=== PATIENT | male | born 1955 | race African-American/Black ===

== ENCOUNTER 2017-02-23 17:40 | Emergency (ER) | payer MEDICARE ==
--- NOTE | 2017-02-23 18:20 | ER Document Report ---
ED Medical Screen (RME) - General Chief Complaint: Leg Pain Stated Complaint: LEG PAIN Time Seen by Provider: 02/23/17 18:10 Mode of Arrival: Wheelchair Information source: Patient TRAVEL OUTSIDE OF THE [place] IN LAST 30 DAYS: No - HPI Patient complains to provider of: R leg pain; SOB Onset: Other - pt was seen at earlier today with R leg pain and SOB. He says they were concerned he may have a blood clot and they told him to be evaluated here - Related Data Allergies/Adverse Reactions: No Known Allergies Allergy (Unverified 02/23/17 17:43) Home Medications: Current Home Medications Aspirin [Aspirin 81 mg Chewable Tablet] 81 mg PO DAILY 02/23/17 [History] Atorvastatin Calcium 10 mg PO QHS 02/23/17 [History] Gabapentin 300 mg PO BID 02/23/17 [History] Glimepiride 2 mg PO BID 02/23/17 [History] Hydrochlorothiazide 25 mg PO BID 02/23/17 [History] Levothyroxine Sodium 75 mcg PO DAILY 02/23/17 [History] Losartan Potassium 100 mg PO DAILY 02/23/17 [History] Metformin HCl [Metformin HCl ER] 1,000 mg PO DAILY 02/23/17 [History] Multivitamin [Multivitamins] 1 tab PO DAILY 02/23/17 [History] Pioglitazone HCl [Pioglitazone HCl] 1 tab PO DAILY 02/23/17 [History] Past Medical History - Social History Chew tobacco use (# tins/day): No Frequency of alcohol use: None Drug Abuse: None Renal/ Medical History: Denies: Hx Peritoneal Dialysis Physical Exam - Vital signs Vitals: Temp Pulse Resp BP Pulse Ox 97.6 F 76 20 162/73 H 93 02/23/17 17:59 02/23/17 17:59 02/23/17 17:59 02/23/17 17:59 02/23/17 17:59 Course - Vital Signs Vital signs: Temp Pulse Resp BP Pulse Ox 97.6 F 76 20 162/73 H 93 02/23/17 17:59 02/23/17 17:59 02/23/17 17:59 02/23/17 17:59 02/23/17 17:59
[2017-02-23 18:53] LABS: ABSOLUTE BASOPHILS # (AUTO) 0.1 10^3/uL (0.0-0.2); ABSOLUTE EOSINOPHILS # (AUTO) 0.4 10^3/uL (0.0-0.6); ABSOLUTE MONOCYTES (AUTO) 0.8 10^3/uL (0.1-1.4); ABSOLUTE NEUT (AUTO) 4.3 10^3/uL (1.7-8.2); BASOPHILS % (AUTO) 0.7 % (0-2); EOSINOPHILS % (AUTO) 5.8 % (0-6); HEMATOCRIT 33.1 % (37.9-51.0); HEMOGLOBIN 10.8 g/dL (13.5-17.0); HGB HCT DIFFERENCE -0.7; LYMPHOCYTES % (AUTO) 26.8 % (13-45); MEAN CORPUSCULAR HEMOGLOBIN 26.7 pg (27.0-33.4); MEAN CORPUSCULAR HGB CONC 32.6 g/dL (32.0-36.0); MEAN CORPUSCULAR VOLUME 82 fl (80-97); MONOCYTES % (AUTO) 10.3 % (3-13); RED BLOOD COUNT 4.04 10^6/uL (4.35-5.55); RED CELL DISTRIBUTION WIDTH 15.6 % (11.5-14.0); SEGMENTED NEUTROPHILS % (AUTO) 56.4 % (42-78); WHITE BLOOD COUNT 7.6 10^3/uL (4.0-10.5)
--- NOTE | 2017-02-23 18:58 | RADIOLOGY REPORT (SQ) ---
EXAM DESCRIPTION: CHEST PA/LAT COMPLETED DATE/TIME: 02/23/2017 6:48 pm REASON FOR STUDY: SOB COMPARISON: None. EXAM PARAMETERS: NUMBER OF VIEWS: two views TECHNIQUE: Digital Frontal and Lateral radiographic views of the chest acquired. RADIATION DOSE: NA LIMITATIONS: none FINDINGS: LUNGS AND PLEURA: No opacities, masses or pneumothorax. No pleural effusion. MEDIASTINUM AND HILAR STRUCTURES: No masses or contour abnormalities. HEART AND VASCULAR STRUCTURES: Heart normal size. No evidence for failure. BONES: No acute findings. HARDWARE: None in the chest. OTHER: No other significant finding. IMPRESSION: NO SIGNIFICANT RADIOGRAPHIC FINDING IN THE CHEST. TECHNICAL DOCUMENTATION: JOB ID: [id number] [employer]- All Rights Reserved
[2017-02-23 19:29] LABS: ALANINE AMINOTRANSFERASE 36 U/L (21-72); ALBUMIN 4.1 g/dL (3.5-5.0); ALKALINE PHOSPHATASE 79 U/L (38-126); ANION GAP 13 (5-19); ASPARTATE AMINO TRANSFERASE 28 U/L (17-59); BILIRUBIN,DIRECT 0.5 mg/dL (0.0-0.4); BILIRUBIN,TOTAL 0.5 mg/dL (0.2-1.3); BLOOD UREA NITROGEN 21 mg/dL (7-20); CALCIUM 9.8 mg/dL (8.4-10.2); CARBON DIOXIDE 28 mmol/L (22-30); CHLORIDE 101 mmol/L (98-107); CREATINE KINASE 468 U/L (55-170); CREATININE RESULT 1.33 mg/dL (0.52-1.25); GLUCOSE 66 mg/dL (75-110); POTASSIUM 4.2 mmol/L (3.6-5.0); SODIUM 142.3 mmol/L (137-145); TOTAL PROTEIN 7.7 g/dL (6.3-8.2)
[2017-02-23 19:41] LABS: CREATINE KINASE MB 2.49 ng/mL (<4.55)
[2017-02-23 19:45] LABS: TROPONIN I < 0.012 ng/mL
--- NOTE | 2017-02-23 21:13 | RADIOLOGY REPORT (SQ) ---
EXAM DESCRIPTION: VENOUS UNILATERAL LOWER COMPLETED DATE/TIME: 02/23/2017 9:00 pm REASON FOR STUDY: R leg pain and swelling COMPARISON: None. TECHNIQUE: Dynamic and static schmidt scale and color images acquired of the right leg venous system. S elected spectral images acquired with additional compression and augmentation maneuvers. The contrala teral common femoral vein and saphenofemoral junction were also imaged. Images stored on PACS. LIMITATIONS: None. FINDINGS: COMMON FEMORAL: Normal phasicity, compression and augmentation. No visualized echogenic ma terial on schmidt scale. No defects on color images. FEMORAL: Normal compression and augmentation. No visualized echogenic material on schmidt scale. No defe cts on color images. POPLITEAL: Normal compression, augmentation. No visualized echogenic material on schmidt scale. No defec ts on color images. CALF VESSELS: Normal compression, augmentation. No visualized echogenic material on schmidt scale. No de fects on color images. GSV and SSV: Normal compression, augmentation. No visualized echogenic material on schmidt scale. No def ects on color images. ANY DEEP VENOUS INSUFFICIENCY: Not evaluated. ANY EVIDENCE OF POPLITEAL CYST: No. OTHER: No other significant finding. CONTRALATERAL COMMON FEMORAL VEIN AND SAPHENOFEMORAL JUNCTION: Normal phasicity, compression and augmentation. No visualized echogenic material on schmidt scale. No de fects on color images. IMPRESSION: NO EVIDENCE OF DVT OR SVT IN THE RIGHT LEG. TECHNICAL DOCUMENTATION: JOB ID: [id number] [email or web address]- All Rights Reserved
--- NOTE | 2017-02-23 22:42 | ER Document Report ---
ED General - General Chief Complaint: Leg Pain Stated Complaint: LEG PAIN Time Seen by Provider: 02/23/17 18:10 Mode of Arrival: Wheelchair Notes: The patient is a 61-year-old male, past medical history hypertension, presents with several weeks of bilateral leg swelling and 1 week of right calf pain. In addition, he was having slight wheezing earlier in the week. Patient was seen at the urgent care and sent to the ER for further evaluation and treatment. Patient has never had a DVT and is not on any blood thinners. He denies shortness of breath, chest pain, dyspnea on exertion, rash, numbness, tingling, recent surgery or leg injury. TRAVEL OUTSIDE OF THE [place] IN LAST 30 DAYS: No - Related Data Allergies/Adverse Reactions: No Known Allergies Allergy (Unverified 02/23/17 17:43) Home Medications: Current Home Medications Aspirin [Aspirin 81 mg Chewable Tablet] 81 mg PO DAILY 02/23/17 [History] Atorvastatin Calcium 10 mg PO QHS 02/23/17 [History] Gabapentin 300 mg PO BID 02/23/17 [History] Glimepiride 2 mg PO BID 02/23/17 [History] Hydrochlorothiazide 25 mg PO BID 02/23/17 [History] Levothyroxine Sodium 75 mcg PO DAILY 02/23/17 [History] Losartan Potassium 100 mg PO DAILY 02/23/17 [History] Metformin HCl [Metformin HCl ER] 1,000 mg PO DAILY 02/23/17 [History] Multivitamin [Multivitamins] 1 tab PO DAILY 02/23/17 [History] Pioglitazone HCl [Pioglitazone HCl] 1 tab PO DAILY 02/23/17 [History] Past Medical History - General Information source: Patient - Social History Smoking Status: Former Smoker Chew tobacco use (# tins/day): No Frequency of alcohol use: None Drug Abuse: None Family History: Reviewed & Not Pertinent Patient has suicidal ideation: No Patient has homicidal ideation: No Renal/ Medical History: Denies: Hx Peritoneal Dialysis Review of Systems - Review of Systems Notes: REVIEW OF SYSTEMS: CONSTITUTIONAL: -fevers, -chills EENT: -eye pain, -difficulty swallowing, -nasal congestion CARDIOVASCULAR:-chest pain, -syncope. RESPIRATORY: -cough, -SOB GASTROINTESTINAL: -abdominal pain, - nausea, -vomiting, -diarrhea GENITOURINARY: -dysuria, -hematuria MUSCULOSKELETAL: -back pain, -neck pain, +B/L leg swelling SKIN: -rash or skin lesions. HEMATOLOGIC: -easy bruising or bleeding. LYMPHATIC: -swollen, enlarged glands. NEUROLOGICAL: -altered mental status or loss of consciousness, -headache, - neurologic symptoms PSYCHIATRIC: -anxiety, -depression. ALL OTHER SYSTEMS REVIEWED AND NEGATIVE. Physical Exam - Vital signs Vitals: Temp Pulse Resp BP Pulse Ox 97.6 F 76 20 162/73 H 93 02/23/17 17:59 02/23/17 17:59 02/23/17 17:59 02/23/17 17:59 02/23/17 17:59 - Notes Notes: PHYSICAL EXAMINATION: GENERAL: Well-appearing, well-nourished and in no acute distress. HEAD: Atraumatic, normocephalic. EYES: Pupils equal round and reactive to light, extraocular movements intact, sclera anicteric, conjunctiva are normal. ENT: nares patent, oropharynx clear without exudates. Moist mucous membranes. NECK: Normal range of motion, supple without lymphadenopathy LUNGS: Breath sounds clear to auscultation bilaterally and equal. No wheezes rales or rhonchi. HEART: Regular rate and rhythm without murmurs ABDOMEN: Soft, nontender, normoactive bowel sounds. No guarding, no rebound. No masses appreciated. EXTREMITIES: Normal range of motion. Strong distal pulses. 1+ edema up to knees in bilateral legs. Right calf tenderness. NEUROLOGICAL: Cranial nerves grossly intact. Normal speech, normal gait. Normal sensory and motor exams. PSYCH: Normal mood, normal affect. SKIN: Warm, Dry, normal turgor, no rashes or lesions noted. Course - Re-evaluation Re-evalutation: Patient does not have a DVT or SVT on his right lower extremity ultrasound. Chest x-ray is clear and blood work is unremarkable. Instructed patient about beginning a low-sodium diet, keeping his legs elevated and starting a short course of Lasix to help with the bilateral dependent edema. Patient will follow with his primary care physician for further evaluation and treatment. - Vital Signs Vital signs: Temp Pulse Resp BP Pulse Ox 97.6 F 74 18 160/70 H 98 02/23/17 17:59 02/23/17 22:58 02/23/17 22:58 02/23/17 22:58 02/23/17 22:58 - Laboratory Result Diagrams: 02/23/17 18:34 02/23/17 18:34 Laboratory results interpreted by me: 02/23/17 02/23/17 18:34 18:34 RBC 4.04 L Hgb 10.8 L Hct 33.1 L MCH 26.7 L RDW 15.6 H BUN 21 H Creatinine 1.33 H Est GFR (Non-Af Amer) 54 L Glucose 66 L Direct Bilirubin 0.5 H Creatine Kinase 468 H - Diagnostic Test Radiology reviewed: Image reviewed, Reports reviewed Radiology results interpreted by me: GUTIERREZ US: No DVT or SVT. CXR: NAD - EKG Interpretation by Me EKG shows normal: Sinus rhythm, Finley, QRS Complexes, ST-T Waves Discharge - Discharge Clinical Impression: Leg edema Condition: Stable Disposition: HOME, SELF-CARE Additional Instructions: There is no evidence of a blood clot in your legs. Keep the legs elevated, eat a low-sodium diet and take the Lasix as instructed to help remove the fluid from your legs. Follow-up with your primary care physician for further evaluation and treatment. Edema, Peripheral You have swelling in your legs. This is called peripheral edema. It can be caused by "leaky capillaries," inflammation, disease of the leg veins, or excess salt and water in your body. Edema may be a sign of heart, kidney, or liver disease. A medical evaluation can determine if there is a serious underlying cause for your edema. Avoid prolonged standing. If you must sit for a long time, occasionally get up and walk around or elevate your legs. Support stockings can be helpful in limiting swelling. Often diuretic or water pills are used to remove excess salt and water from your body. Call the doctor or return if you develop increased swelling, pain, or redness, shortness of breath, chest pain, or any other significant change. Prescriptions: Furosemide [Lasix 20 mg Tablet] 20 mg PO QAM #4 tablet Forms: Elevated Blood Pressure Referrals: ANTONIO GARVIN MD [ACTIVE STAFF] - Follow up as needed
[2017-02-23 22:59] VITALS: BP 160/70
--- NOTE | 2017-02-24 09:19 | EKG REPORT ---
SEVERITY:- ABNORMAL ECG - SINUS RHYTHM FIRST DEGREE AV BLOCK LEFT ANTERIOR FASCICULAR BLOCK : Confirmed by: Braeden Lee MD 24-Feb-2017 09:19:04
== END 2017-02-23 23:35 | disposition home or self-care (01) ==
LOC: ER 17:40
DX: R60.0 Localized edema (principal); M79.661 Pain in right lower leg; I10 Essential (primary) hypertension; Z87.891 Personal history of nicotine dependence
CPT/HCPCS: 36415; 71020; 80053; 82550; 82553; 84484; 85025; 85379; 93005; 93010; 93971; 99284